=== PATIENT | male | born 1980 | race Caucasian/White ===

== ENCOUNTER 2018-08-22 23:59 | Emergency (ER) | payer BC ==
[2018-08-23 00:06] VITALS: BP 140/86; PULSE 82; RESP 18; TEMP 98.3
[2018-08-23] MEDS ORDERED: ACET/COD 300 MG/30 MG STARTER PACK 6 TAB BTL PO STA (00:26)
[2018-08-23] MEDS ORDERED: HYDROcodone/APAP 5-325MG 1 EACH TAB PO STA (00:26)
--- NOTE | 2018-08-23 00:26 | ED ---
ENT HPI - General Source: patient, RN notes reviewed Mode of arrival: ambulatory Limitations: no limitations <Morris Coleman - Last Filed: 08/23/18 00:27> <Gabriella Rowe - Last Filed: 08/23/18 04:28> - General Chief complaint: Dental/Oral Stated complaint: Dental pain Time Seen by Provider: 08/23/18 00:08 - History of Present Illness Initial comments: 37-year-old male presents emergency from chief complaint of left lower dental abscess. Patient states she's been in a rash last 2 weeks by his dentist. Cheryl acuna is scheduled to see oral surgery next . Patient states she's had increased swelling and pain today. Patient noticed increased swelling in his gumline. Patient reports no fevers or chills. (Morris Coleman) - Related Data Previous Rx's Medication Instructions Recorded Ibuprofen [Motrin] 600 mg PO Q6HR PRN #40 day 08/10/14 Clindamycin HCl 300 mg PO Q6HR #40 cap 08/23/18 Allergies Allergy/AdvReac Type Severity Reaction Status Date / Time No Known Allergies Allergy Verified 08/10/14 11:02 Review of Systems ROS Other: All systems not noted in ROS Statement are negative. <Morris Coleman - Last Filed: 08/23/18 00:27> ROS Other: All systems not noted in ROS Statement are negative. <Gabriella Rowe - Last Filed: 08/23/18 04:28> ROS Statement: Those systems with pertinent positive or pertinent negative responses have been documented in the HPI. Past Medical History Past Medical History: No Reported History History of Any Multi-Drug Resistant Organisms: None Reported Additional Past Surgical History / Comment(s): Plastic facial surgery Past Psychological History: No Psychological Hx Reported Smoking Status: Current every day smoker Past Alcohol Use History: None Reported Past Drug Use History: Marijuana <Morris Coleman - Last Filed: 08/23/18 00:27> General Exam Limitations: no limitations General appearance: alert, in no apparent distress Head exam: Present: atraumatic, normocephalic, normal inspection Eye exam: Present: normal appearance, PERRL, EOMI. Absent: scleral icterus, conjunctival injection, periorbital swelling ENT exam: Present: mucous membranes moist, TM's normal bilaterally, normal external ear exam. Absent: normal oropharynx (Large left lower dental abscess, dental caries noted) Neck exam: Present: normal inspection, full ROM. Absent: tenderness, meningismus, lymphadenopathy Respiratory exam: Present: normal lung sounds bilaterally. Absent: respiratory distress, wheezes, rales, rhonchi, stridor Cardiovascular Exam: Present: regular rate, normal rhythm, normal heart sounds. Absent: systolic murmur, diastolic murmur, rubs, gallop, clicks <Morris Coleman - Last Filed: 08/23/18 00:27> Course Vital Signs 08/23/18 00:02 Temperature 98.3 F Pulse Rate 82 Respiratory 18 Rate Blood Pressure 140/86 O2 Sat by Pulse 97 Oximetry Procedures <Morris Coelman - Last Filed: 08/23/18 00:27> - Procedures Initial comment: Dental abscess left lower, 18-gauge needle was used to open the abscess, large amount of purulent drainage was suctioned out patient tolerated well patient had relief of symptoms. (Morris Coleman) Medical Decision Making <Morris Coleman - Last Filed: 08/23/18 00:27> <Gabriella Rowe - Last Filed: 08/23/18 04:28> - Medical Decision Making 37-year-old male presented for dental abscess. This was opened and drained in the emergency department. Patient was started on clindamycin. Patient has follow-up appointment with oral surgery. Return parameters were discussed. (Morris Coleman) I was available for consultation in the emergency department. The history and physical exam were done by the Midlevel Provider. Medical decision making was done by the Midlevel Provider. The Midlevel Provider did not contact me for this patient's care. I was not directly involved in this patient's care. (Gabriella Rowe) Disposition Is patient prescribed a controlled substance at d/c from ED?: No Time of Disposition: 00:26 <Morris Coleman - Last Filed: 08/23/18 00:27> <Gabriella Rowe - Last Filed: 08/23/18 04:28> Clinical Impression: Dental abscess Disposition: HOME SELF-CARE Condition: Stable Instructions (If sedation given, give patient instructions): Dental Abscess (ED) Additional Instructions: Please return to the Emergency Department if symptoms worsen or any other concerns. Prescriptions: Clindamycin HCl 300 mg PO Q6HR #40 cap Referrals: None,Stated [Primary Care Provider] - 1-2 days
== END 2018-08-23 00:48 | disposition home or self-care (01) ==
LOC: EC 23:59
DX: K04.7 Periapical abscess without sinus (principal); F17.200 Nicotine dependence, unspecified, uncomplicated
CPT/HCPCS: 41800; 99283

== ENCOUNTER 2021-02-02 18:00 | Emergency (ER) | payer BC, OTHER ==
[2021-02-02] MEDS ORDERED: AMOXIC-POT CLAV 875MG STARTER PACK 2 TAB BTL PO STA (20:22)
--- NOTE | 2021-02-02 20:24 | ED ---
General Adult HPI - General Chief complaint: Skin/Abscess/Foreign Body Stated complaint: Lt Finger Infection Time Seen by Provider: 02/02/21 19:59 Source: patient, family Mode of arrival: ambulatory - History of Present Illness Initial comments: 40-year-old male presents to the emergency room for a chief complaint of swelling of the left fourth digit. Patient states he bites his nails and got an infection. Patient states he squeezed it and pus came out yesterday. However today it was more swollen. Patient denies fevers or chills. Denies pain with flexing the finger. Patient has no other complaints at this time including shortness of breath, chest pain, abdominal pain, nausea or vomiting, headache, or visual changes. - Related Data Previous Rx's Medication Instructions Recorded Ibuprofen [Motrin] 600 mg PO Q6HR PRN #40 day 08/10/14 Clindamycin HCl 300 mg PO Q6HR #40 cap 08/23/18 Amoxicillin/Potassium Clav 1 tab PO Q12HR #14 tab 02/02/21 [Augmentin 875-125 Tablet] Allergies Allergy/AdvReac Type Severity Reaction Status Date / Time No Known Allergies Allergy Verified 02/02/21 18:45 Review of Systems ROS Statement: Those systems with pertinent positive or pertinent negative responses have been documented in the HPI. ROS Other: All systems not noted in ROS Statement are negative. Past Medical History Past Medical History: Asthma History of Any Multi-Drug Resistant Organisms: None Reported Past Surgical History: No Surgical Hx Reported Additional Past Surgical History / Comment(s): Plastic facial surgery Past Psychological History: No Psychological Hx Reported Smoking Status: Former smoker Past Alcohol Use History: None Reported Past Drug Use History: Marijuana General Exam General appearance: alert, in no apparent distress Head exam: Present: atraumatic Eye exam: Present: normal appearance, PERRL, EOMI. Absent: scleral icterus, conjunctival injection ENT exam: Present: normal exam, mucous membranes moist Neck exam: Present: normal inspection, full ROM. Absent: tenderness Respiratory exam: Present: normal lung sounds bilaterally. Absent: respiratory distress, wheezes Cardiovascular Exam: Present: regular rate, normal rhythm, normal heart sounds Extremities exam: Present: full ROM (Full range of motion in the left fourth digit.), normal capillary refill (Capillary edema less than 2 seconds in the left fourth digit.), other (Mild edema noted to the ulnar aspect of the left fourth fingernail fold. No swelling or pain in the finger pad.) Course Vital Signs 02/02/21 18:45 Temperature 98.6 F Pulse Rate 69 Respiratory 20 Rate Blood Pressure 136/60 O2 Sat by Pulse 96 Oximetry Procedures - Incision & Drainage Consent Obtained: verbal consent Indication: paronychia Site: hand I&D Cleaning Method: Chloroprep Scalpel Used: #11 (18 G needle) I&D Drainage Obtained: Pus, Blood Patient Tolerated Procedure: well, no complications Medical Decision Making - Medical Decision Making I&D was performed of the paronychia, mild purulent drainage expelled. No evidence of felon. No flexor tendon tenderness. Full range of motion. Patient will be started on Augmentin. He will follow up with his doctor. Will return here for any worsening symptoms. Disposition Clinical Impression: Paronychia Disposition: HOME SELF-CARE Condition: Good Instructions (If sedation given, give patient instructions): Paronychia (ED) Additional Instructions: Please do warm compresses or warm soaks. Follow-up with primary care. Take antibiotics as directed. Return to the emergency room for any worsening symptoms. Prescriptions: Amoxicillin/Potassium Clav [Augmentin 875-125 Tablet] 1 tab PO Q12HR #14 tab Is patient prescribed a controlled substance at d/c from ED?: No Referrals: Gertrude Workman MD [REFERRING] - 1-2 days Time of Disposition: 20:23
[2021-02-02 20:37] VITALS: BP 146/88; PULSE 85; RESP 16; TEMP 97.9
== END 2021-02-02 20:37 | disposition home or self-care (01) ==
LOC: EC 18:00
DX: L03.012 Cellulitis of left finger (principal); J45.909 Unspecified asthma, uncomplicated; F12.90 Cannabis use, unspecified, uncomplicated; Z87.891 Personal history of nicotine dependence; Z79.1 Long term (current) use of non-steroidal anti-inflammatories (NSAID)
CPT/HCPCS: 10060; 99282

== ENCOUNTER → 2023-12-01 | Outpatient (CLI) | payer BC ==
[2023-12-01 13:17] LABS: Basophils # (A) 0.09 X 10*3/uL (0.00-0.10); Eosinophils # (A) 0.21 X 10*3/uL (0.04-0.35); Eosinophils % (A) 2.4 %; HCT 43.8 % (39.6-50.0); HGB 14.9 g/dL (13.0-17.0); Lymphocytes # (A) 3.25 X 10*3/uL (0.90-5.00); Lymphocytes % (A) 37.8 %; MCH 30.1 pg (27.0-32.0); MCV 88.5 FL (80.0-97.0); Mean Platelet Volume 9.1 FL (9.5-12.2); Monocytes # (A) 0.68 X 10*3/uL (0.20-1.00); Monocytes % (A) 7.9 %; NRBC Per 100 WBC 0 X 10*3/uL (0.00-0.01); Neutrophils # (A) 4.31 X 10*3/uL (1.80-7.70); Neutrophils % (A) 50.3 %; Platelet Count 323 X 10*3/uL (140-440); RBC 4.95 X 10*6/uL (4.40-5.60); RDW 12.8 % (11.5-14.5); WBC 8.59 X 10*3/uL (4.50-10.00)
[2023-12-01 13:47] LABS: ALT 18 U/L (10-49); AST 15 U/L (14-35); Albumin 4.4 g/dL (3.8-4.9); Alkaline Phosphatase 92 U/L (41-126); BUN/Creat Ratio 12.56 Ratio (12.00-20.00); Blood Urea Nitrogen 11.3 mg/dL (9.0-27.0); Calcium 9.5 mg/dL (8.7-10.3); Carbon Dioxide 24.3 mmol/L (21.6-31.8); Chloride 105 mmol/L (96-109); Chol/HDL Ratio 4.78 Ratio; Glucose 108 mg/dL (70-110); LDL Cholesterol,Calculated 123.6 mg/dL (0.0-131.0); Potassium 4.7 mmol/L (3.5-5.5); Sodium 141 mmol/L (135-145); Total Bilirubin 0.2 mg/dL (0.3-1.2); Total Protein 6.4 g/dL (6.2-8.2); VLDL Calculation 15.58 mg/dL (5.00-40.00)
== END | disposition home or self-care (01) ==
LOC: LABWHC1 08:38
PROVIDERS: ATTEND Family Medicine
DX: Z13.220 Encounter for screening for lipoid disorders (principal); Z13.228 Encounter for screening for other metabolic disorders; Z13.29 Encounter for screening for other suspected endocrine disorder
CPT/HCPCS: 36415; 80053; 80061; 82306; 84443; 85025